=== PATIENT | male | born 1945 | race Caucasian/White ===

== ENCOUNTER 2017-12-01 06:55 | Day surgery (SDC) | payer MEDICARE, BC ==
[2017-12-01] MEDS ORDERED: Midazolam 1 MG/ML 2 ML SDV ONE (07:27)
[2017-12-01] MEDS ORDERED: Propofol 200 MG/20 ML SDV ONE (07:27)
[2017-12-01] MEDS ORDERED: fentaNYL 100 MCG/2 ML SDV ONE (07:27)
[2017-12-01] MEDS ORDERED: Lactated Ringers 1,000 ML IV SCH (07:30)
--- NOTE | 2017-12-01 13:58 | OR ---
DATE OF PROCEDURE: 12/01/2017 PREOPERATIVE DIAGNOSIS: Ulcerative colitis and history of colon polyps. POSTOPERATIVE DIAGNOSES: Unremarkable colonoscopy, ulcerative colitis, and history of colon polyps. PROCEDURE: Colonoscopy to the cecum. ANESTHESIA: IV anesthesia with monitored anesthesia care. INDICATION: This 72-year-old white male is referred for a colonoscopy because of a history, in the remote past, of polyps and ulcerative colitis. I counseled him for the procedure including risks and alternatives, and he gave his informed consent to proceed. DESCRIPTION OF PROCEDURE: The patient was placed in the left lateral decubitus position. IV anesthesia was administered by the Anesthesia Service. Time-out was held. A rectal exam was performed, which was unremarkable. The flexible video Olympus colonoscope was introduced through his anus, up his rectum, and out his colon, all the way to the cecum. The prep was good. Once the cecum was reached, the scope was slowly withdrawn, examining the mucosa throughout. No mucosal abnormalities were noted. The scope was retroflexed in the rectum with the distal rectum appearing unremarkable. The scope was straightened and removed. He tolerated the procedure well. Alexandre Rios MD /[id number]
== END 2017-12-01 09:55 | disposition home or self-care (01) ==
LOC: JP.SDS 06:55
PROVIDERS: ATTEND Surgery
DX: Z12.11 Encounter for screening for malignant neoplasm of colon (principal); Z86.010 Personal history of colon polyps; K51.90 Ulcerative colitis, unspecified, without complications; Z88.8 Allergy status to other drugs, medicaments and biological substances; Z91.09 Other allergy status, other than to drugs and biological substances
CPT/HCPCS: G0105; J2250; J2704; J3010; J7120

== ENCOUNTER 2022-12-19 06:56 | Day surgery (SDC) | payer BC, MEDICARE ==
[2022-12-19] MEDS ORDERED: Sodium Chloride 0.9% 10 ML Syringe FLUSH PRN (07:30)
== END 2022-12-19 08:24 | disposition home or self-care (01) ==
LOC: JP.SDS 06:56
PROVIDERS: ATTEND Ophthalmology
DX: E11.36 Type 2 diabetes mellitus with diabetic cataract (principal); H26.9 Unspecified cataract; E78.5 Hyperlipidemia, unspecified; Z79.899 Other long term (current) drug therapy; Z88.5 Allergy status to narcotic agent
CPT/HCPCS: 66984; J3490

== ENCOUNTER 2023-01-09 06:26 | Day surgery (SDC) | payer MEDICARE ==
[2023-01-09] MEDS ORDERED: Sodium Chloride 0.9% 10 ML Syringe FLUSH PRN (07:30)
== END 2023-01-09 08:25 | disposition home or self-care (01) ==
LOC: JP.SDS 06:26
PROVIDERS: ATTEND Ophthalmology
DX: H26.9 Unspecified cataract (principal); F41.9 Anxiety disorder, unspecified; F32.A Depression, unspecified; Z88.5 Allergy status to narcotic agent; Z79.899 Other long term (current) drug therapy
CPT/HCPCS: J3490

== ENCOUNTER 2025-03-31 06:28 | Day surgery (SDC) | payer MEDICARE ==
[2025-03-31] MEDS: Lactated Ringers 1,000 ML IV SCH (06:56)
[2025-03-31] MEDS ORDERED: fentaNYL 100 MCG/2 ML SDV ONE (07:28)
[2025-03-31] MEDS ORDERED: Propofol 200 MG/20 ML SDV ONE (07:28)
== END 2025-03-31 09:41 | disposition home or self-care (01) ==
LOC: JP.SDS 06:28
PROVIDERS: ATTEND Surgery
DX: Z12.11 Encounter for screening for malignant neoplasm of colon (principal); D12.3 Benign neoplasm of transverse colon; D12.4 Benign neoplasm of descending colon; K57.30 Diverticulosis of large intestine without perforation or abscess without bleeding; N18.9 Chronic kidney disease, unspecified; Z88.8 Allergy status to other drugs, medicaments and biological substances
CPT/HCPCS: 00811; 45380; 45385; 88305; J2704; J3010; J7120

== ENCOUNTER 2025-06-29 20:58 | Emergency (ER) | payer MEDICARE ==
[2025-06-29] MEDS: Ketorolac 30 MG/ML SDV IM ONE (21:38)
[2025-06-29 22:19] LABS: BASOPHILS ABSOLUTE AUTO 0.05 K/uL (0.00-0.10); BASOPHILS PERCENT AUTO 0.6 % (0.1-1.3); EOSINOPHILS ABSOLUTE AUTO 0.07 K/uL (0.00-0.40); EOSINOPHILS PERCENT AUTO 0.8 % (0.0-5.4); IMMATURE GRAN ABSOLUTE AUTO 0.15 K/uL (0.00-0.23); IMMATURE GRAN PERCENT AUTO 1.7 % (0.0-0.7); LYMPHOCYTES ABSOLUTE AUTO 1.46 K/uL (0.8-3.3); LYMPHOCYTES PERCENT AUTO 17.0 % (11.4-47.7); MONOCYTES ABSOLUTE AUTO 0.52 K/uL (0.20-0.90); MONOCYTES PERCENT AUTO 6.0 % (3.3-12.6); NEUTROPHILS ABSOLUTE AUTO 6.36 K/uL (1.0-7.6); NEUTROPHILS PERCENT AUTO 73.9 % (40.0-78.1); PLATELET COUNT,PLT 229 K/uL (130-375); RED BLOOD CELL COUNT 4.60 M/uL (4.14-5.76); WHITE BLOOD CELL COUNT,WBC 8.6 K/uL (3.2-11.0)
[2025-06-29] MEDS: fentaNYL 100 MCG/2 ML SDV IM ONE (22:21)
[2025-06-29 22:41] LABS: A/G RATIO 1.0 (1.2-2.2); ALANINE AMINOTRANSFERASE,ALT 72 U/L (12-78); ASPARTATE AMNIOTRANSFERASE,AST 35 U/L (15-37); BILIRUBIN TOTAL 0.5 mg/dL (0.2-1.0); BLOOD UREA NITROGEN,BUN 22 mg/dL (7-18); CARBON DIOXIDE,CO2 29 mmol/L (21-32); CHLORIDE,CL 100 mmol/L (100-108); CREATININE 1.5 mg/dL (0.8-1.3); EST CRCL DRUG DOSING (CG) 37.33 mL/min; ESTIMATED GFR 47 mL/min (>60); GLUCOSE RANDOM 177 mg/dL (74-106); POTASSIUM,K 4.4 mmol/L (3.6-5.2); PROTEIN TOTAL,TP 8.0 g/dL (6.4-8.2); SODIUM,NA 136 mmol/L (140-148)
== END 2025-06-29 23:45 | disposition home or self-care (01) ==
LOC: JP.ED 20:58
DX: M25.552 Pain in left hip (principal); E78.00 Pure hypercholesterolemia, unspecified; N18.9 Chronic kidney disease, unspecified; Z79.899 Other long term (current) drug therapy; Z88.8 Allergy status to other drugs, medicaments and biological substances; Z88.5 Allergy status to narcotic agent; Z90.49 Acquired absence of other specified parts of digestive tract; Z87.891 Personal history of nicotine dependence; X58.XXXA Exposure to other specified factors, initial encounter
CPT/HCPCS: 36415; 72192; 73502; 76377; 80053; 83605; 85025; 86140; 96372; 99284; J1885; J3010